=== PATIENT | female | born 1970 | race Hispanic/Latino ===

== ENCOUNTER 2018-09-02 21:29 | Emergency (ER) | payer OTHER ==
[~2018-09-02] VITALS: Ht 160 cm; Wt 81.7 kg
[~2018-09-02 21:29] MED LIST: CETIRIZINE HCL10 MG PO; FISH OIL500 M1 PO; FLEXERIL10 MG PO; FLONASE ALLERG9.9 ML NAS; IBUPROFEN800 MG PO; NAPHCON-A EYE D15 ML OPTH; NORCO 10-325 T1 EACH PO; PERCOCET 10-321 EACH PO; PREDNISONE20 MG PO; PRENATAL-FOLIC1 EACH PO; PROMETHAZINE HC25 M1 PO; TRAMADOL HCL50 MG PO; ZOFRAN ODT4 MG PO
[2018-09-02] MEDS ORDERED: AMITRIPTYLINE H50 MG PO (22:06)
== END 2018-09-03 00:25 | disposition home or self-care (01) ==
LOC: ED 21:29
DX: R11.2 Nausea with vomiting, unspecified (principal)
CPT/HCPCS: 80053; 81001; 83735; 84703; 85025; 96361; 96374; 99284-25; J2405; J7030

== ENCOUNTER 2022-05-21 19:37 | Emergency (ER) | payer OTHER ==
[~2022-05-21] VITALS: Ht 160 cm; Wt 81.7 kg
[~2022-05-21 19:37] MED LIST changes: +ACETAMINOPHEN500 MG PO; +AMITRIPTYLINE H50 MG PO; +GLUCOPHAGE1000 MG PO; +HYDROCODON-ACE1 EA10 PO; +IBUPROFEN600 MG PO; +MOBIC15 MG PO; +ZYRTEC10 MG PO
== END 2022-05-21 21:06 | disposition home or self-care (01) ==
LOC: ED 19:37
DX: M70.41 Prepatellar bursitis, right knee (principal); E11.65 Type 2 diabetes mellitus with hyperglycemia; Z79.899 Other long term (current) drug therapy; Z79.84 Long term (current) use of oral hypoglycemic drugs
CPT/HCPCS: 36415; 73560; 80053; 84550; 85025; 85379; 86140; 99283-25